=== PATIENT | male | born 2000 | race African-American/Black ===

== ENCOUNTER 2020-09-27 16:48 | Emergency (ER) | payer MEDICAID ==
[~2020-09-27] VITALS: Ht 160 cm; Wt 84.0 kg
[~2020-09-27 16:48] MED LIST: IBUP-2028 MT
[2020-09-27] MEDS ORDERED: IBUPROFEN 600MG TABLET PO ONE (17:15)
[2020-09-27] MEDS ORDERED: IBUP-2028 MT (17:28)
[2020-09-27 21:03] VITALS: BP 128/72
== END 2020-09-27 21:04 | disposition home or self-care (01) ==
LOC: ER 16:48
DX: R51.9 Headache, unspecified (principal)
CPT/HCPCS: 99284